=== PATIENT | male | born 1950 | race Caucasian/White ===

== ENCOUNTER → 2019-04-08 14:36 | Outpatient (CLI) | payer OTHER, SELFPAY ==
--- NOTE | 2019-04-08 | DI.US.S_ITS ---
PROCEDURE: US SCROTUM INDICATIONS: RIGHT INFERIOR POLE TESTICULAR MASS TECHNIQUE: Real-time scanning was performed of the scrotum and testicles, with image documentation. Color and pulse Doppler interrogation was performed of both testicles. COMPARISON: None. FINDINGS: Right: Testicle is normal in size at 5.0 x 2.2 x 3.9 cm, and homogenous in echotexture. There is an epididymal tail mass measuring 13 mm x 13 mm x 13 mm. Small right hydrocele. Overlying scrotal skin is normal in thickness. 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 Testicle is normal in size at 4.3 x 2.5 x 3.0 cm, and homogeneous in echotexture. Epididymis is normal in overall size and morphology. Large left hydrocele. Overlying scrotal skin is normal in thickness. Doppler: Color and pulse Doppler demonstrate normal and symmetric arterial flow in both testicles. IMPRESSION: 1. Right epididymal tail mass measuring 13 mm x 13 mm x 13 mm. 2. Large left and small right hydroceles. Dictated by: Shukri To M.D. on 04/08/2019 at 16:58 Approved by: Shukri To M.D. on 04/08/2019 at 17:00
== END ==
PROVIDERS: Family Provider Family Medicine; PCP Family Medicine; Visit Provider Family Medicine
DX: N50.9 Disorder of male genital organs, unspecified (principal); N43.3 Hydrocele, unspecified
CPT/HCPCS: 76870

== ENCOUNTER 2020-07-19 11:46 | Day surgery (SDC) | payer MEDICARE, SELFPAY ==
[2020-07-07 08:06] VITALS: BMI 23.0
[2020-07-19] VITALS (7 sets, daily range): BP systolic 93–136; BP diastolic 51–74; PULSE 45–57; RESP 12–16; TEMP 36.5–37.1; O2SAT 95–100; BMI 23.5
--- NOTE | 2020-07-19 12:44 | PM.PREOP ---
Pre-operative Note Interval Note History & Physical reviewed/Exam performed by Physician: Yes Changes to H&P: No
[2020-07-19] MEDS: CEFAZOLIN 2 GM/100 ML FROZ.PIGGY IV (13:23)
--- NOTE | 2020-07-19 13:36 | SUR.OPER ---
Supine on padded OR bed, head on pillow, arms secured on padded arm boards at <90 degrees abduction, legs uncrossed, safety belt at thigh, tape over blanket over lower legs.
[2020-07-19] MEDS: BUPIVACAINE 0.5% W/ EPI (PF) 30 ML VIAL INJ (13:42)
[2020-07-19] MEDS: BUPIVACAINE LIPOSOME 266 MG/20 ML VIAL INJ (13:43)
--- NOTE | 2020-07-19 14:29 | PM.OP.1 ---
Operative Date/Time/Diagnoses Date of procedure: 07/19/20 Time of procedure: 14:29 Pre-op diagnosis: Left hydrocele Procedure & Clinicians Procedure: 1. Left hydrocele it Same procedure as scheduled: Yes Indications: Left hydrocele Surgeon: Joe Casas Click Yes if Unassisted: Yes Anesthesia Type: General and Local (1.33% Exparel) Operative Notes Findings: 1. Moderately large left hydrocele with clear, straw-colored fluid. 2. Multiple intrascrotal Pearls within the confines of the tunica vaginalis. Closure Type: primary Specimen(s): none sent Applied: drain(s) (10F [place] Nicola) Estimated Blood Loss (mL): 2 Blood products transfused: none Tourniquet time (min): 0 Procedure in detail: The patient was positioned supine was administered general anesthesia. The abdomen, genitalia, and groin were then prepped and draped in sterile fashion. A solution of 0.5% Marcaine with epinephrine was then used to infiltrate the midline scrotal raphae and subcutaneous dartos fascial layer. A midline incision was then created with the cautery pen through the layers of the midline scrotal wall. The tunica vaginalis on the left was then encountered. Appropriate plane was then developed and using blunt technique the tunica vaginalis was from the intermuscular aspect of the dartos fascia. The hydrocele was contents were then delivered the left hemiscrotum were opened along the midline vertically a contents were drained as noted above. The hydrocele sac was excised using the cautery pen. Testicle was then repositioned within the left hemiscrotum anatomically insert cured in place with 2 interrupted 2 0 Monocryl sutures. A 10 [place] Nicola drain was then passed through a separate stab incision at the left lateral and inferior aspect of the scrotal wall. It was secured to the skin with a 2-0 silk suture using a Raciel Santyl technique. Midline scrotal raphae was then closed with a running vertical mattress of 2-0 Monocryl. The skin was then reapproximated using a running horizontal mattress of 4-0 Monocryl. The scrotal wall skin along the incision were infiltrated with Exparel. Next antibiotic ointment was applied to the incision line and then dry sterile fluffs were stacked on the scrotum. An athletic supporter was then fitted to the patient. The drain was fitted to bulb self suction. The patient was then awakened, transferred to [facility], and transferred to recovery in stable condition. Complications: none Post-operative Condition: stable Disposition: PACU Plan for aftercare: Discharge home.
[2020-07-19] MEDS: OXYCODONE/ACETAMINOPHEN 5/325 TABLET 1 TAB PO (14:45)
[2020-07-19] MEDS: ACETAMINOPHEN 325 MG TABLET 650 MG PO (14:45)
[2020-07-19] MEDS: LACTATED RINGERS 1,000 ML 42 ML IV (15:00)
--- NOTE | 2020-07-19 15:04 | SUR.PHASEII ---
Assumed care of pt, called will be in for d/c teaching.
--- NOTE | 2020-07-19 15:33 | SUR.PHASEII ---
arrived, written d/c instruction discussed to include REBEKAH bulb teaching, both voiced an understanding. Dressing remained c/d/i.
--- NOTE | 2020-07-19 20:01 | SUR.PHASEII ---
Late entry: pt left after filled and obtained prescription and was ready to go. Pt left unit in stable condition.
== END 2020-07-19 16:30 | disposition home or self-care (01) ==
PROVIDERS: Family Provider Family Medicine; PCP Family Medicine; Referring Provider Specialist; Visit Provider Specialist
PROC: (CPT 55040; principal; 2020-07-19 12:30)
DX: N43.3 Hydrocele, unspecified (principal)
CPT/HCPCS: 55040; C9290; J0690; J2704; J3010

== ENCOUNTER 2023-07-19 08:50 | Day surgery (SDC) | payer MEDICARE, SELFPAY ==
--- NOTE | 2023-07-19 | PATH_ITS ---
[facility] Accession Number: [id number] No. of containers..01 Tissue . 01 Material submitted: . rectum - RECTAL POLYP . 01 Diagnosis: Rectal Polyp, Biopsy: Hyperplastic polyp. MRV 07/25/2023 1543 Local . 01 Electronically signed: . Graciela Emery MD, Pathologist NPI- [id number] . 01 Gross description: . RECTAL POLYP: Received in formalin is 2 fragment(s) of crespo, soft tissue measuring 0.3 x 0.3 x 0.2 cm to 0.3 x 0.2 x 0.1 cm submitted entirely in 1 cassette(s) /AAY 07/20/2023 0607 Local . 01 Pathologist provided ICD-10: D12.8 . 01 CPT . 221918 Specimen Comment: A courtesy copy of this report has been sent to [phone] Performed at: 01 [facility] [address] [place] [address], [place], [place] [id number] MD Pavel Nuno MD Phone: [phone]
[2023-07-19 09:04] VITALS: BP 128/86; PULSE 62; RESP 16; TEMP 36.2; O2SAT 99; BMI 22.3
--- NOTE | 2023-07-19 09:07 | P.HP_ITS ---
History of Present Illness History of Present Illness Date Patient Seen: 07/19/23 Time Patient Seen: 09:07 Chief complaint: SDC Narrative: Jose is a 72 year old man who had a colonoscopy about 10 years ago here. He believes he had polyps. No family history of colon cancer in a first degree relative. [facility] Medical History Colon polyp Former smoker Hearing loss Left hydrocele Surgical History Vasectomy status Family History Mother Cancer Social History household members: spouse Smoking Status: Former smoker alcohol intake: current Meds Home Medications and Allergies Home Medications Medication Instructions Recorded Confirmed Type tamsulosin 0.4 mg capsule (Flomax) 0.4 mg PO QDAY #90 caps 06/05/17 07/19/23 Rx Allergies Allergy/AdvReac Type Severity Reaction Status Date / Time No Known Drug Allergies Allergy Verified 07/19/23 09:00 Exam Const General: healthy appearing Resp Effort & Inspection: normal respiratory effort Assessment & Plan Assessment and plan (1) History of colon polyps: Status: Acute Plan We reviewed the risks and benefits of colonoscopy and he like to proceed.
[2023-07-19] MEDS: LACTATED RINGERS 1,000 ML 84 ML IV (09:24)
--- NOTE | 2023-07-19 09:56 | PM.OP.COLON ---
Operative Date/Time/Diagnoses Date of procedure: 07/19/23 Time of procedure: 09:56 Pre-op diagnosis: History of polyps Post-op diagnosis: same Procedure & Clinicians Study performed: Colonoscopy Same procedure as scheduled: Yes Surgeon: Parrish Dutta Procedure Notes Procedure in detail: Surgeon: Parrish Dutta MD Anesthesia: Qiana Whatley DO Procedure: The patient was brought to the endoscopy suite, placed in left lateral decubitus position. The patient was connected to monitoring devices. A time-out was performed. Sedation was administered. Once the patient was adequately sedated, a digital rectal exam was performed and was normal. The scope was then inserted and advanced to the cecum where the appendiceal orifice was identified and photographed. The scope was then slowly withdrawn over greater than 6 minutes. The mucosa was thoroughly inspected. There was a 3 mm rectal polyp removed with the Jumbo forceps.. The scope was retroflexed in the rectum. There was an internal hemorrhoid. The scope was straightened and removed. The patient was awakened and brought to recovery. Scope withdrawal time: 8 minutes Sedation time: 22 minutes EBL: 3 mL Findings: 3 mm rectal polyp and internal hemorrhoids Post-procedure Disposition: PACU
[2023-07-19 10:00] VITALS: BP 90/57; PULSE 52; RESP 16; TEMP 36.3; O2SAT 95
[2023-07-19 10:05] VITALS: BP 95/62; PULSE 50; RESP 14; O2SAT 98
[2023-07-19 10:10] VITALS: BP 96/68; PULSE 57; RESP 14; TEMP 36.3; O2SAT 96
[2023-07-19 10:17] VITALS: BP 96/65; PULSE 52; RESP 12; TEMP 36.1; O2SAT 96
== END 2023-07-19 10:42 | disposition home or self-care (01) ==
PROVIDERS: Family Provider Family Medicine; PCP Family Medicine; Referring Provider Surgery; Visit Provider Surgery
PROC: 0DJD8ZZ Inspection of Lower Intestinal Tract, Via Natural or Artificial Opening Endoscopic (ICD-10-PCS; CPT 45378; principal; 2023-07-19 10:00)
DX: Z12.11 Encounter for screening for malignant neoplasm of colon (principal); Z86.010 Personal history of colon polyps; K64.8 Other hemorrhoids; D12.8 Benign neoplasm of rectum
CPT/HCPCS: 45380; J2704